=== PATIENT | male | born 1980 | race Caucasian/White ===

== ENCOUNTER 2016-04-21 18:17 | Emergency (ER) | payer SELFPAY ==
--- NOTE | 2016-04-21 18:38 | PDOC ---
Rapid Medical Evaluation Chief Complaint: Chest Pain Time Seen by Provider: 04/21/16 18:36 Medical Evaluation: I have performed a brief in-person evaluation of this patient. The patient presents with a chief complaint of: 35 yo M with hx varicocele multiple complaints. +Hematuria, testicular pain, chest pain, abdominal pain. Chest pain is right-sided, reproducible. Abd soft and nontender. No CVAT. Pertinent physical exam findings: Well-appearing, slightly anxious. I have ordered the following: UA, EKG The patient will proceed to the ED for further evaluation.
[2016-04-21 18:42] VITALS: BP 129/79; PULSE 72; TEMP 98.2; BMI 30.2
[2016-04-21 19:47] LABS: URINE APPEARANCE CLEAR; URINE BILIRUBIN NEGATIVE (NEGATIVE); URINE BLOOD NEGATIVE (NEGATIVE); URINE COLOR LTYELLOW; URINE GLUCOSE (UA) NEGATIVE (NEGATIVE); URINE KETONE NEGATIVE (NEGATIVE); URINE LEUK ESTERASE NEGATIVE (NEGATIVE); URINE NITRITE NEGATIVE (NEGATIVE); URINE PROTEIN NEGATIVE (NEGATIVE); URINE UROBILINOGEN NEGATIVE E.U./dl (0.2-1.0)
[2016-04-21] MEDS ORDERED: KETOROLAC TROMETHAMINE 60 MG/2 ML VIAL IM ONE (20:08)
[2016-04-21] MEDS ORDERED: KETOROLAC TROMETHAMINE 30 MG/1 ML VIAL ONE (20:09)
--- NOTE | 2016-04-21 20:14 | PDOC ---
History of Present Illness - General Chief Complaint: Chest Pain Stated Complaint: CHEST PAIN Time Seen by Provider: 04/21/16 18:36 History Source: Patient Exam Limitations: No Limitations - History of Present Illness Initial Comments: 04/21/16 20:09 Patient is here with multiple complaints. States over the past one week has had generalized body aches, intermittent moving from right flank to left hip to scrotum. Also states had some shortness of breath earlier in the week, some chest pain that resolved, and some mild dizziness last week, spontaneously resolved. Patient states was diagnosed with a varicocele to left testicle some years ago, and 2009 but was never followed up with urologist. Patient states he has some tenderness in his scrotum most of the time but denies history of torsion, any drainage or urinary tract issue. Denies pain or burning with his urine. Also complains of some bright red blood noted on toilet paper today after bowel movement but states has had loose stools for the past 4 days, 4 times a day. Takes aspirin 81 mg one or 2 tablets 2-3 times a day for generalized body aches. Is never had a GI bleed or any gastrointestinal issue.. With all of these vague complaints patient felt he needed to be evaluated as he has not had a thorough exam in over a year. Patient reports his father is seriously ill with cancer and was concerned he may have cancer also. Timing/Duration: unsure, 1 week Severity: mild Aspirin Received prior to arrival: Yes: 81 mg x 1 Past History - Travel Traveled outside of the country in the last 30 days: No Close contact w/someone who was outside of country & ill: No - Past Medical History Allergies/Adverse Reactions: Allergies Allergy/AdvReac Type Severity Reaction Status Date / Time No Known Allergies Allergy Verified 11/21/15 13:20 Home Medications: Ambulatory Orders NK [No Known Home Medication] 04/21/16 Other medical history: pericarditis - Surgical History Appendectomy: Yes - Psycho/Social/Smoking Cessation Hx Anxiety: No Suicidal Ideation: No Smoking History: Never smoked Have you smoked in the past 12 months: No Hx Alcohol Use: Yes Drug/Substance Use Hx: No Substance Use Type: Alcohol Review of Systems - Review of Systems Able to Perform ROS?: Yes Is the patient limited Japanese proficient: Yes Constitutional: Yes: Symptoms Reported, See HPI, Malaise, Weakness. No: Fever, Loss of Appetite HEENTM: Yes: See HPI. No: Symptoms Reported, Nose Congestion, Nose Bleeding, Throat Pain, Throat Swelling Respiratory: Yes: Symptoms reported, See HPI, Shortness of Breath (intermittent) . No: Cough Musculoskeletal: Yes: Symptoms Reported, See HPI, Back Pain, Joint Pain, Muscle Pain Integumentary: Yes: See HPI. No: Symptoms Reported, Bruising Hematologic/Lymphatic: No: Symptoms Reported All Other Systems: Reviewed and Negative *Physical Exam - Vital Signs Last Vital Signs Temp Pulse Resp BP Pulse Ox 98.2 F 72 16 129/79 98 04/21/16 18:36 04/21/16 18:36 04/21/16 18:36 04/21/16 18:36 04/21/16 18:36 - Physical Exam General Appearance: Yes: Nourished, Appropriately Dressed. No: Apparent Distress HEENT: positive: [place], Normal ENT Inspection, Normal Voice, TMs Normal, Pharynx Normal Neck: positive: Supple. negative: Tender, Lymphadenopathy (R), Lymphadenopathy (L) Respiratory/Chest: positive: Lungs Clear, Normal Breath Sounds. negative: Rhonchi, Wheezing Gastrointestinal/Abdominal: positive: Soft. negative: Tender, Organomegaly, Rebound, Tenderness Male Genitalia: positive: normal genitalia. negative: testicular mass (no obvious varicocele or hernia appreciated to either testicle. No tenderness reproduced and no abnormalities noted in size or cotton to her scrotum.), epididymus tender Rectal Exam: positive: heme negative stool, normal exam, normal rectal tone. negative: melena Extremity: positive: Normal Capillary Refill, Normal Inspection, Normal Range of Motion. 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, Fully Oriented, Alert, Normal Mood/ Affect, Normal Response, Motor Strength 5/5 Heart Score/ECG Review - ECG Intrepretation Rhythm: Regular Rhythm - [place]: Normal - ST and T Non Specific ST-T Wave changes: No - ECG Impressions Normal ECG: Yes Ischemic Changes: No ED Treatment Course - ADDITIONAL ORDERS Additional order review: Laboratory Results 04/21/16 19:36 Urine Color Ltyellow Urine Appearance Clear Urine pH 5.0 Ur Specific [place] 1.016 Urine Protein Negative Urine Glucose (UA) Negative Urine Ketones Negative Urine Blood Negative Urine Nitrite Negative Urine Bilirubin Negative Urine Urobilinogen Negative Ur Leukocyte Esterase Negative Medical Decision Making - Medical Decision Making 04/21/16 20:14 Normal exam, will treat conservatively as patient has no evidence of significant pathology other than possible stressors and anxiety. Understands should follow-up with urologist for further exam of your varicocele history, and thorough evaluation at [facility]. Avoid using aspirin products *DC/Admit/Observation/Transfer Diagnosis at time of Disposition: Musculoskeletal pain - Discharge Dispostion Disposition: HOME Condition at time of disposition: Stable Admit: No - Referrals Referrals: Brandon Huber MD [Staff Physician] - - Patient Instructions Additional Instructions: Rest, drink lots of fluids, Ibuprofen 2200 milligrams tablets every 6 hours as needed for aches and pains Call for appointment with urologist to follow up on history of varicocele Call for appointment with family practice doctor for thorough physical exam - Post Discharge Activity Work/School Note: Back to Work
--- NOTE | 2016-04-22 10:44 | EKG ---
Test Reason : Blood Pressure : / mmHG Vent. Rate : 066 BPM Atrial Rate : 066 BPM P-R Int : 158 ms QRS Dur : 110 ms QT Int : 370 ms P-R-T Axes : 057 009 020 degrees QTc Int : 387 ms NORMAL SINUS RHYTHM INCOMPLETE RIGHT BUNDLE BRANCH BLOCK BORDERLINE ECG NO PREVIOUS ECGS AVAILABLE Confirmed by LATIA MELARA, JONA ([id number]) on 04/22/2016 10:44:41 AM Referred By: Confirmed By:JONA JEFFERY MD
== END 2016-04-21 20:37 | disposition home or self-care (01) ==
LOC: JERFT 18:17
PROC: 3E0233Z Introduction of Anti-inflammatory into Muscle, Percutaneous Approach (ICD-10-PCS; principal; 2016-04-21)
DX: M79.1 Myalgia (principal)
CPT/HCPCS: 81003; 87086; 93005; 93010; 99281-25